=== PATIENT | female | born 1950 | race Caucasian/White ===

== ENCOUNTER 2016-10-22 07:18 | Outpatient (CLI) | payer MEDICARE, OTHER ==
[2016-10-22] MEDS ORDERED: SUCCINYLCHOLINE CHLORIDE 200 MG/10 ML VIAL ONE (07:52)
[2016-10-22] MEDS ORDERED: ROCURONIUM 100 MG/10 ML VIAL ONE (07:53)
[2016-10-22 08:22] LABS: CREATININE 1.2 mg/dL (0.6-1.0)
[2016-10-22] MEDS ORDERED: GADOBUTROL 10 ML VIAL IVP ONE (08:52)
[2016-10-22] MEDS ORDERED: MIDAZOLAM 2 MG/2 ML VIAL IVP ONE (09:05)
--- NOTE | 2016-10-22 09:05 | PDANEPAE ---
ANE History of Present Illness 66 yo F w Parkinson's Dx here for MRI ANE Past Medical History - Cardiovascular History Hx Hypertension: No Hx Arrhythmias: No Hx Chest Pain: No Hx Coronary Artery / Peripheral Vascular Disease: No Hx CHF / Valvular Disease: No Hx Palpitations: No - Pulmonary History Hx COPD: No Hx Asthma/Reactive Airway Disease: No Hx Recent Upper Respiratory Infection: No Hx Oxygen in Use at Home: No Hx Sleep Apnea: No - Neurologic History Hx Cerebrovascular Accident: No Hx Seizures: No Hx Dementia: No Neurologic History Comment: Parkinson's diagnosed 2017 - Endocrine History Hx Diabetes: No - Renal History Hx Renal Disorders: No - Liver History Hx Hepatic Disorders: No - Neurological & Psychiatric Hx Hx Neurological and Psychiatric Disorders: Yes Neurological / Psychiatric History Comment: Depression - Cancer History Hx Cancer: No - Congenital Disorder History Hx Congenital Disorders: No - GI History GERD: moderate Hx Gastrointestinal Disorders: No - Chronic Pain History Chronic Pain: No - Surgical History Prior Surgeries: AVCF 2013. left foot gangolin removal 1994. lasix eye surgery 2009 ANE Review of Systems - Exercise capacity Exercise capacity: >=4 METS METS (RN): 3 METS ANE Patient History - Allergies Allergies/Adverse Reactions: No Allergies [NKDA] Allergy (Verified 10/15/16 17:29) tree nut [Nuts] Allergy (Verified 10/15/16 17:29) - Home Medications Home medications: home medication list seen and reviewed Home Medications: ARIPiprazole [Abilify 10 mg (*)] 5 mg PO DAILY 10/15/16 [Last Taken Unknown] Citalopram Hydrobromide [Citalopram HBr] 40 mg PO DAILY 10/15/16 [Last Taken Unknown] Vit B12/Levomefolate/Vit B6/B2 [Cerefolin Tablet] 1 each PO DAILY 10/15/16 [ Last Taken Unknown] lamoTRIgine [LamICTAL 100 MG (*)] 200 mg PO DAILY 10/17/16 [Last Taken Unknown] - NPO status NPO Status: no food or drink >8 hours - Anes Hx Anes Hx: no prior problems - Smoking Hx Smoking Status: Former smoker - Alcohol Use Alcohol Use: Occasionally - Family Anes Hx Family Anes Hx: none Family Hx Anesthesia Complications: denies ANE Labs/Vital Signs - Labs Result Diagrams: 10/22/16 08:00 - Vital Signs Vital Signs: reviewed preoperatively; see RN documention for details Height: 162.56 cm Weight: 82.554 kg ANE Physical Exam - Airway Neck exam: FROM Mallampati Score: Class 2 Mouth exam: normal dental/mouth exam Mouth image: 1 - missing - Pulmonary Pulmonary: no respiratory distress, clear to auscultation - Cardiovascular Cardiovascular: regular rate and rhythym, no murmur, rub, or gallop - ASA Status ASA Status: III ANE Anesthesia Plan Anesthesia Plan: general endotracheal anesthesia
[2016-10-22] MEDS ORDERED: fentaNYL 100 MCG/2 ML INJ ONE (09:20)
[2016-10-22] MEDS ORDERED: PROPOFOL 200 MG/20 ML VIAL ONE ×2 (09:20→09:21)
[2016-10-22] MEDS ORDERED: LIDOCAINE 2% 100 MG/5 ML SYR ONE (09:21)
[2016-10-22] MEDS ORDERED: SUGAMMADEX SODIUM 200 MG/2 ML VIAL IVP ONE (10:45)
[2016-10-22] MEDS ORDERED: NALOXONE HCL 0.4 MG/ML INJ IVP PRN (11:09)
[2016-10-22] MEDS ORDERED: PROMETHAZINE HCL 25 MG/ML INJ IVP PRN (11:09)
[2016-10-22] MEDS ORDERED: ONDANSETRON 4 MG/2 ML VIAL IVP PRN (11:09)
[2016-10-22] MEDS ORDERED: ACETAMINOPHEN 500 MG TAB PO PRN (11:09)
--- NOTE | 2016-10-22 11:13 | POSTANESTH ---
Post Anesthetic Evaluation Cardiovascular Status: Normal, Stable, Similar to Pre-Op Cond Respiratory Status: Normal, Stable, Similar to Pre-op Cond. Level of Consciousness/Mental Status: Can Participate in Eval, Alert and Oriented Pain Control: Adequate, Prn Tx Ordered Nausea/Vomiting Control: Adequate, Prn Tx Ordered Complications Possibly Related to Anesthesia: None Noted
[2016-10-22] MEDS ORDERED: DEXAMETHASONE 10 MG/ML VIAL ONE (11:27)
[2016-10-22] MEDS ORDERED: PHENYLEPHRINE 10 MG/ML SDV ONE (11:27)
[2016-10-22] MEDS ORDERED: ONDANSETRON 4 MG/2 ML VIAL ONE (11:27)
[2016-10-22 12:04] VITALS: BP 125/70; RESP 16; O2SAT 97
== END 2016-10-22 12:30 | disposition home or self-care (01) ==
LOC: FIMAGING 07:18
PROVIDERS: ATTEND Neurological Surgery
PROC: B030Y0Z Magnetic Resonance Imaging (MRI) of Brain using Other Contrast, Unenhanced and Enhanced (ICD-10-PCS; principal; 2016-10-22 10:40)
DX: G20 Parkinson's disease (principal)
CPT/HCPCS: 70553; A9585; J0330; J1100; J2001; J2250; J2370; J2405; J2704; J3010

== ENCOUNTER 2016-10-29 05:30 | Inpatient (IN) | payer OTHER, MEDICARE ==
[2016-10-29] MEDS ORDERED: CEFUROXIME 1,500 MG in NS 50 ML IV ONE (06:22)
--- NOTE | 2016-10-29 06:38 | PDHPUP ---
History & Physical Update H&P update statement: This history and physical update is based on an assessment of the patient which was completed after admission or registration (within 24 hours), but prior to the surgery/procedure. H&P update: H&P reviewed & patient examined, no change in patient's condition since H&P completed
[2016-10-29] MEDS ORDERED: THROMBIN (BOVINE) 20,000 UNIT VIAL TP ONE ×2 (06:46→09:08)
[2016-10-29] MEDS ORDERED: LIDOCAINE 2% JELLY 20 ML (UROJECT) ONE (06:46)
[2016-10-29] MEDS ORDERED: BUPIVACAINE/EPI 0.25% 30 ML SDV ONE (06:47)
[2016-10-29] MEDS ORDERED: BACITRACIN 50,000 UNITS/10 ML SYR IRR ONE (06:47)
[2016-10-29] MEDS ORDERED: PROPOFOL 200 MG/20 ML VIAL ONE ×2 (06:49→07:52)
[2016-10-29] MEDS ORDERED: DEXMEDETOMIDINE HCL 200 MCG/2 ML VIAL IV ONE (06:51)
[2016-10-29] MEDS ORDERED: GENTAMICIN SULFATE 80 MG/2 ML VIAL ONE (09:07)
--- NOTE | 2016-10-29 09:12 | PDANEPAE ---
ANE History of Present Illness 66 y/o woman with parkinsons for DBS implant. ANE Past Medical History - Cardiovascular History Hx Hypertension: No Hx Arrhythmias: No Hx Chest Pain: No Hx Coronary Artery / Peripheral Vascular Disease: No Hx CHF / Valvular Disease: No Hx Palpitations: No - Pulmonary History Hx COPD: No Hx Asthma/Reactive Airway Disease: No Hx Recent Upper Respiratory Infection: No Hx Oxygen in Use at Home: No Hx Sleep Apnea: No Sleep Apnea Screening Result - Last Documented: Negative - Neurologic History Hx Cerebrovascular Accident: No Hx Seizures: No Hx Dementia: No Neurologic History Comment: MIGRAINES IN PAST - Endocrine History Hx Diabetes: No - Renal History Hx Renal Disorders: No - Liver History Hx Hepatic Disorders: No - Neurological & Psychiatric Hx Hx Neurological and Psychiatric Disorders: Yes Neurological / Psychiatric History Comment: ANXIETY & DEPRESSION - Cancer History Hx Cancer: No - Congenital Disorder History Hx Congenital Disorders: No - GI History Hx Gastrointestinal Disorders: Yes Gastrointestinal History Comment: GERD - Other Health History Other Health History: NEG - Chronic Pain History Chronic Pain: No - Surgical History Prior Surgeries: R KNEE REPAIR X2. LASIX. FUSION CERVICAL ANE Review of Systems - Exercise capacity METS (RN): 5 METS ANE Patient History - Allergies Allergies/Adverse Reactions: No Allergies [NKDA] Allergy (Verified 10/15/16 17:29) tree nut [Nuts] Allergy (Verified 10/15/16 17:29) - Home Medications Home Medications: ARIPiprazole [Abilify 10 mg (*)] 5 mg PO DAILY 10/15/16 [Last Taken 10/29/16 05: 00] Citalopram Hydrobromide [Citalopram HBr] 40 mg PO DAILY 10/15/16 [Last Taken 05/16 05:00] lamoTRIgine [LamICTAL 100 MG (*)] 200 mg PO DAILY 10/17/16 [Last Taken 10/29/16 05:00] Vit B12/Levomefolate/Vit B6/B2 [Cerefolin Tablet] 1 each PO 10/29/16 [Last Taken 10/29/16 05:00] - NPO status NPO Since - Liquids (Date): 10/28/16 NPO Since - Liquids (Time): 20:00 NPO Since - Solids (Date): 10/28/16 NPO Since - Solids (Time): 20:00 - Smoking Hx Smoking Status: Former smoker - Family Anes Hx Family Hx Anesthesia Complications: NEG ANE Labs/Vital Signs - Vital Signs Blood Pressure: 113/82 Heart Rate: 66 Respiratory Rate: 16 O2 Sat (%): 95 Height: 162.56 cm Weight: 82.554 kg ANE Physical Exam - Airway Mallampati Score: Class 2 Mouth exam: normal dental/mouth exam - Pulmonary Pulmonary: no respiratory distress - Cardiovascular Cardiovascular: regular rate and rhythym - ASA Status ASA Status: II ANE Anesthesia Plan Anesthesia Plan: MAC Lines/Monitors: arterial line
[2016-10-29] MEDS ORDERED: NALOXONE HCL 0.4 MG/ML INJ IVP PRN ×2 (09:14→09:16)
[2016-10-29] MEDS ORDERED: HYDROmorphONE/DILAUDID 1 MG/ML SYR IVP PRN (09:16)
[2016-10-29] MEDS ORDERED: LR 500 ML IV PRN (09:16)
[2016-10-29] MEDS ORDERED: fentaNYL 100 MCG/2 ML INJ IVP PRN (09:16)
[2016-10-29] MEDS ORDERED: ACETAMINOPHEN 500 MG TAB PO PRN (09:16)
[2016-10-29] MEDS ORDERED: DEXAMETHASONE 4 MG/ML VIAL IVP PRN (09:16)
[2016-10-29] MEDS ORDERED: HYDROCODONE/APAP 5/325 TAB PO PRN (09:16)
[2016-10-29] MEDS ORDERED: LACTULOSE 20 GM/30 ML UDCUP PO PRN (11:07)
[2016-10-29] MEDS ORDERED: MAGNESIUM HYDROXIDE 30 ML UDCUP PO PRN (11:07)
[2016-10-29] MEDS ORDERED: ACETAMINOPHEN 325 MG TAB PO PRN (11:07)
[2016-10-29] MEDS ORDERED: ONDANSETRON 4 MG/2 ML VIAL IVP PRN (11:07)
[2016-10-29] MEDS ORDERED: POLYETHYLENE GLYCOL 3350 17 GM PKT PO PRN (11:07)
[2016-10-29] MEDS ORDERED: BISACODYL 10 MG SUPP PR PRN (11:07)
--- NOTE | 2016-10-29 11:14 | POSTOPPROG ---
Post Op Note Date of Operation: 10/29/16 Surgeon: Ana Melendez Carpet Repairer: Ivanna Leyva PA-C Anesthesiologist: Dr. Bullard Anesthesia: IV Sedation Pre-op Diagnosis: Parkinson's Post-op Diagnosis: Parkinson's Procedure: Left STN DBS lead placment Inf/Abcess present in the surg proc area at time of surgery?: No EBL: Minimal Plan Plan: 66 yo female s/p left STN DBS lead placement - neuro checks - pain control - maintain SBP < 140 - postop head CT pending - PT/OT Exam Awake. alert Following commands Incision with dressing Strength full
[2016-10-29] MEDS ORDERED: NS W/ 20 KCl/L 1,000 ML IV SCH (11:15)
[2016-10-29] MEDS ORDERED: fentaNYL 100 MCG/2 ML INJ ONE (11:51)
[2016-10-29] MEDS: HYDROCODONE/APAP 10/325 TAB PO PRN ×2 (16:05→23:38)
[2016-10-29] MEDS: CEFUROXIME 1,500 MG in NS 50 ML IV SCH (16:56)
[2016-10-29] MEDS: SENNOSIDES/DOCUSATE SODIUM TAB PO SCH (19:58)
--- NOTE | 2016-10-29 20:39 | GPN ---
[f rep st] PROCEDURE NOTE DATE OF PROCEDURE: 10/29/2016 PREOPERATIVE DIAGNOSIS: Parkinson disease. POSTOPERATIVE DIAGNOSIS: Parkinson disease. PROCEDURE PERFORMED: Intraoperative functional subcortical mapping by microelectrode recording and stimulation. COMPLICATIONS: None. INDICATIONS FOR PROCEDURE: Determination of optimal electrode lead placement for deep brain stimula tion therapy for Parkinson disease to the STN. DESCRIPTION OF PROCEDURE: Following the incision, a bur hole was drilled on the left side. The arc was then arranged with the following coordinates of X 108, Y 94, Z 123, ring 72, arc 113. The bernadette rding microelectrode was then slowly advanced into the brain using an anterior and central tract. C ell bursts were noted above target in both tracts. In the anterior tract at 5 above target, there w as evidence of entering STN. There was change in stimulation with passive range of motion of the el bow at 4.7 above target. We exited STN at 0.5 below target and entered substantia nigra. There was no evidence of entering STN in the central tract. We were pleased with the recording of the anteri or tract and thus proceeded with macro stimulation. The patient had transient tingling up to 4.0 am plitude. We then proceeded with placing the lead and with test stimulation. We placed the bottom o f the lead at 0 target. At 0- the patient had transient tingling starting at 1.0 through 2.5 amplit ude with improved tremor at 2.0. At 1- patient had improved tremor and transient tingling up to 3.0 amplitude. At 2- patient had improved tremor starting at 1.5 amplitude and transient tingling at 3 .0 amplitude. At 3- patient had improved tremor, transient tingling up to 3.5 amplitude in her righ t hand. We elected to leave the lead at this location with the bottom of the lead at target at STN due to recordings we obtained as well as with test stimulation. The patient tolerated the surgery w ell without complication. /[id number]/MODL
[2016-10-30] MEDS: CEFUROXIME 1,500 MG in NS 50 ML IV SCH (01:27)
[2016-10-30 04:24] VITALS: PULSE 70
--- NOTE | 2016-10-30 07:31 | NEUSURGPN ---
Date of Surgery: 10/29/16 Post Op Day: 1 Assessment/Plan: Assessment: 66 yo female s/p left STN DBS lead placement POD #1 Plan: -continue with neuro checks -continue with current pain control-doing well with it -maintain SBP < 140 -postop head CT looks good -continue with PT/OT -PT/OT to see pt this am and if cleared then likely dc later today -warning signs given -call with any questions or concerns -pt understands and agrees Subjective: Awake and alert. Pt with some incisional pain, no neck/chest/abd or gu complaints. No f/c/n/v/d. Objective: Awake. alert Following commands Incision with dressing-CDI Strength full Neuro Check Frequency: per routine Urinary Catheter in Place: No - Physician Discussed Patient with DrDigna: Al Neurosurgery Physical Exam - Vitals, I&O, Labs I and O 10/29/16 10/30/16 10/31/16 05:59 05:59 05:59 Intake Total 1950 Output Total 20 Balance 1930 Weight 82.554 kg Intake: Oral (ml) 500 IV Intake (ml) 1400 IV Infused (ml) 50 Cefuroxime 1,500 mg In Ns 50 50 ml @ 200 mls/hr IV ONCALL ONE Rx#:[id number] Output: Estimated Blood Loss (ml) 20 Other: Intake Quantity Yes Sufficient Number of Voids Toilet 1 Vital Signs Temp Pulse Resp BP Pulse Ox 36.8 C 70 18 99/55 L 91 L 10/30/16 04:23 10/30/16 04:23 10/30/16 04:23 10/30/16 04:23 10/30/16 04:23 ICD10 Worksheet Patient Problems: Problems Problem Status Onset Parkinson disease Acute - ICD10 Problem Qualifiers (1) Parkinson disease
[2016-10-30 08:21] VITALS: BP 106/67; RESP 20; TEMP 98.2; O2SAT 92
[2016-10-30] MEDS: HYDROCODONE/APAP 10/325 TAB PO PRN (08:41)
[2016-10-30] MEDS: SENNOSIDES/DOCUSATE SODIUM TAB PO SCH (08:42)
[2016-10-30] MEDS ORDERED: CITALOPRAM 20 MG TAB PO SCH (09:00)
[2016-10-30] MEDS ORDERED: lamoTRIgine 100 MG TAB PO SCH (09:00)
[2016-10-30] MEDS ORDERED: NON-FORMULARY NEW DRUG (Citalopram Hydrobromide [Citalopram Hbr] 40 MG) PO SCH (09:00)
[2016-10-30] MEDS ORDERED: ARIPiprazole 10 MG TAB PO SCH (09:00)
[2016-11-01] MEDS ORDERED: ENOXAPARIN 40 MG/0.4 ML SYR SC SCH (09:00)
--- NOTE | 2016-11-04 09:55 | GDS ---
[f rep st] DISCHARGE SUMMARY ADMITTING DIAGNOSIS: Parkinson's disease. DISCHARGE DIAGNOSIS: Parkinson's disease. NAME OF PROCEDURE: Left subthalamic nucleus deep brain stimulator lead placement. HOSPITAL COURSE: The patient is a 66-year-old female, who presented to the hospital to undergo elec tive deep brain stimulation surgery. She underwent surgery by Dr. Ana Melendez on October 29 with paul cement of left STN DBS lead. The patient tolerated the surgery well without complication. Postop h ead CT was completed and was unremarkable for any acute intracranial hemorrhage. She was admitted t o the floor. She was seen by Physical and Occupational Therapy. On the following day, she was tole rating a diet, voiding without difficulty and medically stable, and thus she was deemed suitable for discharge. She was discharged to home on October 30. DISCHARGE MEDICATIONS: [place] 10/325, senna. Continue home medications of Abilify, citalopram, Lami ctal. DISCHARGE INSTRUCTIONS: The patient is to follow up with Dr. Ana Melendez in 2 weeks for suture rem oval and wound check. /[id number]/MODL
== END 2016-10-30 15:03 | disposition home or self-care (01) | DRG 27 ==
LOC: F3N 05:30
PROVIDERS: ADMIT Neurological Surgery; ATTEND Neurological Surgery
PROC: 00H03MZ Insertion of Neurostimulator Lead into Brain, Percutaneous Approach (ICD-10-PCS; principal; 2016-10-29 07:15)
DX: G20 Parkinson's disease (principal)
CPT/HCPCS: 97161-GP; 97165-GO; C1713; G8978-GP-CI; G8979-GP-CI; G8980-GP-CI; G8987-GO-CI; G8988-GO-CI; G8989-GO-CI; J0697; J2704; J3010

== ENCOUNTER 2016-11-26 05:43 | Inpatient (IN) | payer OTHER, MEDICARE ==
[2016-10-29 07:18] LABS: % IMMATURE GRANULYOCYTES 0.6 % (0.0-1.1); ABSOLUTE IMMATURE GRANULOCYTES 0.04 10^3/uL (0.00-0.10); ADD DIFF? NO; ADD MORPH? NO; ADD SCAN? NO; ATYPICAL LYMPHOCYTE FLAG 0 (0-99); FRAGMENT RBC FLAG 0 (0-99); HEMATOCRIT 42.9 % (38.0-47.0); HEMOGLOBIN 14.6 g/dL (12.6-16.3); LEFT SHIFT FLG 0 (0-99); LIPEMIA HEMOLYSIS FLAG 90 (0-99); MEAN CELL HEMOGLOBIN 34.3 pg (27.9-34.1); MEAN CELL VOLUME 100.7 fL (81.5-99.8); MEAN PLATELET VOLUME 9.1 fL (8.7-11.7); PLATELET CLUMPS FLAG 0 (0-99); PLATELET COUNT 193 10^3/uL (150-400); RED BLOOD CELL COUNT 4.26 10^6/uL (4.18-5.33); RED CELL DISTRIBUTION WIDTH 13.3 % (11.5-15.2)
[2016-10-29 07:35] LABS: ALANINE AMINOTRANSFERASE 31 IU/L (9-52); ALBUMIN 3.8 g/dL (3.5-5.0); ALKALINE PHOSPHATASE 69 IU/L (38-126); ANION GAP 12 mEq/L (8-16); ASPARTATE AMINOTRANSFERASE 22 IU/L (14-46); BILIRUBIN,TOTAL 0.4 mg/dL (0.1-1.4); CALCIUM 9.2 mg/dL (8.5-10.4); CARBON DIOXIDE 20 mEq/l (22-31); CHLORIDE 114 mEq/L (97-110); CREATININE 1.2 mg/dL (0.6-1.0); GLOMERULAR FILTRATION RATE 45; GLUCOSE 90 mg/dL (70-100); POTASSIUM 4.4 mEq/L (3.5-5.2); SODIUM 146 mEq/L (134-144); TOTAL PROTEIN 6.4 g/dL (6.3-8.2)
--- NOTE | 2016-10-29 11:46 | GHP ---
[f rep st] PREOP HISTORY AND PHYSICAL DATE OF ADMISSION: 11/26/2016 PREOPERATIVE DIAGNOSIS: Parkinson disease. POSTOPERATIVE DIAGNOSIS: Parkinson disease. PROCEDURE: 1. Left deep brain stimulator lead placement to the subthalamic nucleus. 2. Impedances. 3. Stealth stereotaxis. MEGHAN: ROSE Soto EBL: 10 mL. FLUIDS REPLACED: 1100 mL crystalloid. URINE OUTPUT: 700 mL. DRAINS: None. SPECIMENS: None. COMPLICATIONS: None. INDICATIONS: This is a 66-year-old female with tremor-predominant Parkinson's who was evaluated by a multidisciplinary team and found to be a good candidate for deep brain stimulation in staged fashi on to the STN left for right body to begin first. She was identified and consented. Sit es were marked. Brought to the operating room, anesthetized under local with MAC. Hair was clipped with the OR clippers. Head was cleansed with ChloraPrep, dipping the pins and iodine and anestheti zing with 0.25% Marcaine with epinephrine. We placed a Leksell frame and stereotactic configuration . Brought her downstairs, performed a Stealth stereotactic spin with a localizer box. Brought her back upstairs and merged this to the preoperative plan in the Stealth frame length software. Her AC PC distance was 23.71. The target was an X of -10.8, Y of -4.04, Z of -6.19. The entry point was a n X of -42.34, Y of 33.16, Z of 61.83. This corresponded to 24.9 degrees off midsagittal, 61.3 degr ees off midaxial. This corresponded to a Leksell frame coordinate X of 108, Y of 94, Z of 123, ring of 72 degrees, arc of 113.1 degrees. We then performed an O-arm stereotactic registration with the localizer registered. All the target and entry points were the same. The stereotactic frame coord inates were an X of 108, Y of 94, Z of 123, a ring of 72 degrees, and arc of 113 degrees. Both fram es registered with 0.6 mm predicted error and we elected to move forward with the O-arm registration with an anterior and a center tract. She was prepped and draped in the usual sterile fashion. Inc wanda was marked using the Leksell frame coordinates, which were all set and triple checked by all p roviders in the room. Incision site was marked. A half-hernandez incision was anesthetized with 0.25% M arcaine with epinephrine. Incision was made with a 10 blade. Hemostasis was obtained with bipolar cautery and Josiah clips. We used a periosteal elevator to elevate the periosteum. We then marked t he bone opening using the Leksell frame coordinates, created a spray pilot hole, and then drilled a 14 mm bur hole which was waxed. The dura was coagulated. The Navigus Stimloc device was locked into plac e using 5 mm Synthes screws and the clipping device was verified to clip and lock. We then opened t he dura sharply with an 11 blade, coagulated with bipolar, and then introduced the center and anteri or cannulas, placing Gelfoam and FloSeal. We then removed the internal stylet, placed the microelec trodes, and performed microelectrode recording. Please refer to Ivanna Leyva's microelectrode re cording dictation for all MEGHAN; however, the anterior tract was a positive tract with 5 mm of STN wit h good motor driving. macro stim and did not have any significant side effects. Elected to place the lead in the anterior tract with the bottom of the bottom contacted at target. We drov e to this position, removed both microelectrodes, placed the cannula in the center tract, measured a nd placed the lead, tested the lead at all 4 contacts, and had good tremor arrest with low-to-no madelyn e effects, elected to leave the lead here. Gently removed the center cannula. Removed the Gel-Foam and DuraSeal and copiously irrigated with gentamicin-infused saline. Placed the clipping mechanism , clipped and locked the mechanism, verified it was locked, brought the stylet out, brought the lead down and out, placed it into the groove, placed the cap over the Stimloc device, performed a stereo tactic spin and we had an excellent placement exactly where we expected at approximately 1.8 mm ante rior to the planned tract. We placed the boot over the lead extension complex, placed the lead exte nsion over, protecting each contact with the torque wrench, locked it into place. Brought the boot over the lead extension complex, tied into position with 2-0 silk ties at 2 positions, tunneled post erior with periosteal elevator. Anesthetized the posterior stab incision with 0.25% Marcaine. Perf ormed a stab incision with an 11 blade. Tunneled posterior to anterior. Brought the lead extension down and out. posterior and around the wound copiously irrigated with over a liter of g entamicin-infused saline. The lead flores had not migrated. We closed the galea with 2-0 Vicryl pop -offs. The skin was closed with 3-0 running nylon. The wound was dressed with Xeroform and Telfa s tapled down. The frame was removed. The patient's head was wrapped and she tolerated the procedure well. There were no complications. /[id number]/MODL
[2016-11-26] MEDS ORDERED: CEFUROXIME 1,500 MG in NS 50 ML IV ONE (06:00)
[2016-11-26] MEDS ORDERED: LR 1,000 ML IV ONE (06:15)
[2016-11-26] MEDS ORDERED: THROMBIN (BOVINE) 20,000 UNIT VIAL TP ONE (06:40)
[2016-11-26] MEDS ORDERED: BUPIVACAINE 0.25% 30 ML SDV ONE (06:40)
[2016-11-26] MEDS ORDERED: LIDOCAINE 2% JELLY 20 ML (UROJECT) ONE (06:41)
[2016-11-26] MEDS ORDERED: GENTAMICIN SULFATE 80 MG/2 ML VIAL ONE (06:42)
[2016-11-26] MEDS ORDERED: POVIDONE-IODINE 30 GM OINTTUBE TP ONE (06:42)
[2016-11-26] MEDS ORDERED: DEXMEDETOMIDINE HCL 200 MCG in NS 50 ML IV ONE ×2 (07:00→08:30)
[2016-11-26] MEDS ORDERED: PROPOFOL/EMULSION 500 MG/50 ML BOTTLE IV ONE (07:03)
[2016-11-26] MEDS ORDERED: LIDOCAINE 2% 5 ML SDV ONE (07:03)
--- NOTE | 2016-11-26 07:08 | PDANEPAE ---
ANE History of Present Illness Pt presents for DBS placement ANE Past Medical History - Cardiovascular History Hx Hypertension: No Hx Arrhythmias: No Hx Chest Pain: No Hx Coronary Artery / Peripheral Vascular Disease: No Hx CHF / Valvular Disease: No Hx Palpitations: No - Pulmonary History Hx COPD: No Hx Asthma/Reactive Airway Disease: No Hx Recent Upper Respiratory Infection: No Hx Oxygen in Use at Home: No Hx Sleep Apnea: No Sleep Apnea Screening Result - Last Documented: Negative - Neurologic History Hx Cerebrovascular Accident: No Hx Seizures: No Hx Dementia: No Neurologic History Comment: Parkinson's diagnosed 2017 - Endocrine History Hx Diabetes: No - Renal History Hx Renal Disorders: No - Liver History Hx Hepatic Disorders: No - Neurological & Psychiatric Hx Hx Neurological and Psychiatric Disorders: Yes Neurological / Psychiatric History Comment: Depression - Cancer History Hx Cancer: No - Congenital Disorder History Hx Congenital Disorders: No - GI History Hx Gastrointestinal Disorders: No Gastrointestinal History Comment: GERD - Other Health History Other Health History: NEG - Chronic Pain History Chronic Pain: No - Surgical History Prior Surgeries: AVCF 2013. left foot gangolin removal 1994. lasix eye surgery 2009 ANE Review of Systems - Exercise capacity METS (RN): 4 METS ANE Patient History - Allergies Allergies/Adverse Reactions: No Allergies [NKDA] Allergy (Verified 11/12/16 10:56) tree nut [Nuts] Allergy (Verified 11/12/16 10:56) - Home Medications Home medications: home medication list seen and reviewed Home Medications: ARIPiprazole [Abilify 10 mg (*)] 5 mg PO DAILY 10/15/16 [Last Taken 11/25/16 08: 00] Citalopram Hydrobromide [Citalopram HBr] 40 mg PO DAILY 10/15/16 [Last Taken 04:30] lamoTRIgine [LamICTAL 100 MG (*)] 200 mg PO DAILY 10/17/16 [Last Taken 11/26/16 04:30] - NPO status NPO Status: no food or drink >8 hours NPO Since - Liquids (Date): 11/26/16 NPO Since - Liquids (Time): 04:30 NPO Since - Solids (Date): 11/25/16 NPO Since - Solids (Time): 20:00 - Anes Hx Anes Hx: no prior problems - Smoking Hx Smoking Status: Former smoker - Family Anes Hx Family Hx Anesthesia Complications: denies ANE Labs/Vital Signs - Labs Result Diagrams: 10/29/16 06:55 10/29/16 06:55 - Vital Signs Blood Pressure: 118/67 Heart Rate: 74 Respiratory Rate: 18 O2 Sat (%): 96 Height: 162.56 cm Weight: 82.554 kg ANE Physical Exam - Airway Neck exam: FROM Mallampati Score: Class 2 - Pulmonary Pulmonary: no respiratory distress - Cardiovascular Cardiovascular: regular rate and rhythym - ASA Status ASA Status: II ANE Anesthesia Plan Anesthesia Plan: MAC
[2016-11-26] MEDS ORDERED: hydrALAZINE 20 MG/ML VIAL ONE (07:21)
[2016-11-26] MEDS ORDERED: ONDANSETRON 4 MG/2 ML VIAL ONE (07:21)
[2016-11-26] MEDS ORDERED: RANITIDINE 50 MG/2 ML VIAL ONE (07:21)
[2016-11-26] MEDS ORDERED: DEXAMETHASONE 4 MG/ML VIAL ONE (07:21)
[2016-11-26] MEDS ORDERED: LIDO/EPI 1% **for epidural** 30 ML SDV ONE (08:06)
[2016-11-26] MEDS ORDERED: PHENYLEPHRINE HCL 100 MCG/ML SYR ONE (08:16)
[2016-11-26] MEDS ORDERED: OXYCODONE/APAP 5/325 TAB PO PRN (10:45)
[2016-11-26] MEDS ORDERED: LR 500 ML IV PRN (10:45)
[2016-11-26] MEDS ORDERED: NALOXONE HCL 0.4 MG/ML INJ IVP PRN (10:45)
[2016-11-26] MEDS ORDERED: ONDANSETRON 4 MG/2 ML VIAL IVP PRN ×2 (10:45→11:29)
[2016-11-26] MEDS ORDERED: fentaNYL 100 MCG/2 ML INJ IVP PRN (10:45)
[2016-11-26] MEDS ORDERED: HYDROCODONE/APAP 5/325 TAB PO PRN (10:45)
[2016-11-26] MEDS ORDERED: ACETAMINOPHEN 500 MG TAB PO PRN (10:45)
[2016-11-26] MEDS ORDERED: BISACODYL 10 MG SUPP PR PRN (11:29)
[2016-11-26] MEDS ORDERED: POLYETHYLENE GLYCOL 3350 17 GM PKT PO PRN (11:29)
[2016-11-26] MEDS ORDERED: LACTULOSE 20 GM/30 ML UDCUP PO PRN (11:29)
[2016-11-26] MEDS ORDERED: ACETAMINOPHEN 325 MG TAB PO PRN (11:29)
[2016-11-26] MEDS ORDERED: MAGNESIUM HYDROXIDE 30 ML UDCUP PO PRN (11:29)
[2016-11-26] MEDS ORDERED: NS W/ 20 KCl/L 1,000 ML IV SCH (11:30)
[2016-11-26] MEDS ORDERED: hydrALAZINE 20 MG/ML VIAL IVP PRN (11:32)
--- NOTE | 2016-11-26 11:35 | POSTOPPROG ---
Post Op Note Date of Operation: 11/26/16 Surgeon: Ana Melendez Intelligence Chief: Ivanna Leyva PA-C Anesthesiologist: Dr. Strickland Anesthesia: IV Sedation Pre-op Diagnosis: Parkinson's Post-op Diagnosis: Parkinson's Procedure: Right STN DBS lead placement Inf/Abcess present in the surg proc area at time of surgery?: No Depth: Deep Incisional (Fascial) EBL: Minimal Plan Plan: 66 yo female s/p right STN DBS lead placement for PD Awake. Alert. PERRL Speech fluent Following commands - neuro checks - postop head CT pending - maintain SBP < 140 - PT/OT - dispo: home tomorrow
--- NOTE | 2016-11-26 11:57 | GOP ---
[f rep st] OPERATIVE REPORT DATE OF OPERATION: 11/26/2016 SURGEON: Ana Melendez DO NEUROSURGEON: Ana Melendez DO. HEATER HELPER FORGE: None. PREOPERATIVE DIAGNOSIS: Parkinson disease. POSTOPERATIVE DIAGNOSIS: Parkinson disease. PROCEDURE PERFORMED: 1. Right-sided deep brain stimulator lead placement with Medtronic 3389 lead to STN nucleus. 2. Stealth stereotaxis. FINDINGS: SPECIMENS: None. ESTIMATED BLOOD LOSS: 15 mL. INDICATIONS: This is a 66-year-old female who had an indwelling left-sided STN deep brain stimulato r lead placed approximately 1 month ago who returns for the right-sided lead prior to generator plac ement to the STN. DESCRIPTION OF PROCEDURE: She was identified, consented. Sites were marked. Brought to the operat ing room, anesthetized under local with MAC. Hair was clipped with the OR clippers. Pin sites were marked. She was cleansed with chlorhexidine and pin sites were anesthetized with 0.25% Marcaine an d 1% lidocaine with epinephrine in a 50:50 mixture. Using Betadine ointment on the pin sites, we pl aced the [place] frame stereotactically and then performed a stealth O arm spin with a localizer box . This was to the preoperative plan and the stealth frame length software mirroring her pre vious lead. Her ACPC distance was 23.89. Her target was an X of 10.3, a Y of 4.62, a Z of 5.89. T he entry point was an X of 42.27, a Y of 27.89, a Z of 68.09, corresponding to 23.4 degrees off mids agittal and 66.2 degrees off midaxial. This created [place] frame coordinates of an X of 87.5, a y of 94, a Z of 119.5, a ring of 73 degrees, and an arc of 70.8 degrees. Her [place] frame coordinate s were all set and triple checked by all providers in the room. She was prepped and draped in the u sual sterile fashion. The sterile portion of the [place] frame was set and triple checked by all pr oviders in the room. We marked the skin incision opening using [place] frame coordinates and a half -hernandez incision was anesthetized with 0.5% Marcaine with epinephrine, and a half-hernandez incision was ma de with a 10 blade. Hemostasis was obtained with bipolar and Josiah clips. The periosteal elevator was used to elevate the periosteum. Then the bone and the bone opening was marked using the cannula and the [place] frame coordinates. Then a jet pilot hole was drilled. Then a 14 mm fabian hole was dril led. Edges were waxed. We verified it was in the appropriate position. We placed the stem lock de vice, locking it the place with 5 mm screws. Placed the locking device, verified it, clipped and lo cked. Placed that on the back table. Opened the dura with an 11 blade, and coagulated the dura. G ently inserted the cannula and reducing stylet, sealed the space with Gelfoam and DuraSeal. Removed reducing stylet, placed a microelectrode. Performed microelectrode recordings, got excellent STN w ith macro stem, low to no side effects. The patient had no further tremor, and she is tremor predom inant. To test it, we had to go off side effect, elected to leave the lead here with the bottom of the bottom contact approximately 0.5 mm above the target where we got out of STN. We then tested ea ch contact for side effects as she had resolution of her tremor, and had a very programmable lead. We elected to leave the lead here. An x-ray was taken with the bomb sites and then the cannula was retracted. The clipping mechanism was clipped, locked, and verified the lock. The lead was marked. The stylet was removed. The lead was brought down, out, and placed into the lead. The cap was pl aced. Another x-ray was performed. A stereotactic spin with the O arm was performed. Then we merg ed it, and we had excellent lead placement with near perfect accuracy compared to our plan. We then put the boot over the lead extension complex, placed the lead extension complex over the lead prote cting each contact, locked into place with the torque wrench. Brought the boot over the lead extens ion complex, tied it into position with 2-0 silk ties at 2 positions, tunneled posterior with perios teal elevator. Anesthetized the stab incision with 0.5% Marcaine with epinephrine. Posterior tunne led posterior to anterior and brought the lead extension down and out of the skin, cutting into the skin. Coiled the lead around the incision to the final x-ray with the bomb sites. The lead had not migrated. Copiously irrigated with gentamicin infused saline. Closed the galea with 2-0 Vicryl po p-offs. The skin was closed with 3-0 running nylon. The wound was dressed with Xeroform and Telfa, stapled down. The patient was removed from the [place] fish header. Head was wrapped with gauze. Patient tolerated procedure well. No complications. MEGHAN: ROSE Soto. Please refer to Ivanna Leyva's dictation for all MEGHAN. FLUID: 1300 mL crystalloid. URINE OUTPUT: 800 mL. DRAINS: None. COMPLICATIONS: None. /[id number]/MODL
--- NOTE | 2016-11-26 12:02 | POSTANESTH ---
Post Anesthetic Evaluation Cardiovascular Status: Similar to Pre-Op Cond Respiratory Status: Similar to Pre-op Cond. Level of Consciousness/Mental Status: Alert and Oriented Pain Control: Adequate, Prn Tx Ordered Nausea/Vomiting Control: Adequate, Prn Tx Ordered (Uncomplicated recovery)
--- NOTE | 2016-11-26 12:57 | GPN ---
[f rep st] PROCEDURE NOTE DATE OF PROCEDURE: 11/26/2016 PREOPERATIVE DIAGNOSIS: Parkinson disease. POSTOPERATIVE DIAGNOSIS: Parkinson disease. PROCEDURE PERFORMED: Intraoperative functional subcortical mapping by microelectrode recording and stimulation. COMPLICATIONS: None. INDICATIONS FOR PROCEDURE: Determination of optimal electrode lead placement for deep brain stimulation therapy for Parkinson disease to the STN. DESCRIPTION OF PROCEDURE: Following the incision, a bur hole was drilled on the right side. The arc was then arranged with the following coordinates X 87.5 , Y 94.0, Z 119.5, ring 73.0, arc 70.8. The recording microelectrode was then slowly advanced into the brain using a central tract. Cell bursts were noted above targets at 10 above. There was evidence of entering STN at 4.5-5 above target. There was change in stimulation with passive range of motion with elbow extension at 3.6 above target. It became quieter and we exited STN around 0.5 above target. There was evidence of entering SNR at 0.1 below target. Due to this recording, we then proceeded with macro-stimulation. The patient had transient tingling in her left hand at 2.0 and sustained at 3.0. We then placed the lead with the bottom of the lead at 0.5 above target. At 0-, she had transient left hand tingling that started at 1.5 and was aimed at 2.0. At 1 -, she had left hand tingling starting at 2.0, sustained at 2.5. At 2-, the patient had left hand tingling at 3.0; however transient. No side effects up to 4.0. At 3-, the patient had transient tingling at 3.0 and 3.5. No sustained tingling up to 3.5. The patient had no tremor for us to therapeutically test. We elected to leave the lead at this location with the bottom of the lead at 0.5 above target, due to the recordings we obtained, as well as the test stimulation. The patient tolerated the surgery well without complication. /[id number]/MODL MTDD
[2016-11-26] MEDS: HYDROCODONE/APAP 10/325 TAB PO PRN ×2 (14:20→21:17)
[2016-11-26] MEDS: CEFUROXIME 1,500 MG in NS 50 ML IV SCH (17:49)
[2016-11-27] MEDS: SENNOSIDES/DOCUSATE SODIUM TAB PO SCH ×2 (01:06→08:36)
[2016-11-27] MEDS: CEFUROXIME 1,500 MG in NS 50 ML IV SCH (01:10)
[2016-11-27] MEDS: HYDROCODONE/APAP 10/325 TAB PO PRN ×3 (02:23→14:13)
--- NOTE | 2016-11-27 07:37 | NEUSURGPN ---
Assessment/Plan: A: 66 yo female s/p right STN DBS lead placement for PD POD#1 Plan: - neuro checks - postop head CT reviewed - maintain SBP < 140 - PT/OT - dispo: home today - D/w Dr Melendez - Call NS with any issues Subjective: Pt resting in bed, had difficulty with pain control overnight but doing better this AM Objective: AAOx3 NAD VSS MAEx4 Incision cdi dressing removed and replaced +LT Urinary Catheter in Place: No - Physician Discussed Patient with : Al Neurosurgery Physical Exam - Vitals, I&O, Labs I and O 11/26/16 11/27/16 11/28/16 05:59 05:59 05:59 Intake Total 2845 Output Total 815 Balance 2030 Weight 82.554 kg Intake: Oral (ml) 645 IV Intake (ml) 2000 IV Infused (ml) 200 Cefuroxime 1,500 mg In Ns 100 50 ml @ 200 mls/hr IV Q8H HERLINDA Rx#:[id number] NS W/ 20 KCl/L 1,000 ml @ 100 75 mls/hr IV CONT HERLINDA Rx #:[id number] Output: Urine (ml) 800 Catheter 800 Estimated Blood Loss (ml) 15 Other: Intake Quantity Yes Sufficient Number of Voids Toilet 2 Vital Signs Temp Pulse Resp BP Pulse Ox 37.0 C 65 16 90/52 L 95 11/27/16 04:42 11/27/16 04:42 11/27/16 04:42 11/27/16 04:42 11/27/16 04:42 Laboratory Results 10/29/16 06:55 10/29/16 06:55 ICD10 Worksheet Patient Problems: Problems Problem Status Onset Parkinson disease Acute
[2016-11-27 08:19] VITALS: BP 98/56; RESP 12
[2016-11-27] MEDS ORDERED: ARIPiprazole 10 MG TAB PO SCH (09:00)
[2016-11-27] MEDS ORDERED: CITALOPRAM 20 MG TAB PO SCH (09:00)
[2016-11-27] MEDS ORDERED: NON-FORMULARY NEW DRUG (Citalopram Hydrobromide [Citalopram Hbr] 40 MG) PO SCH (09:00)
[2016-11-27] MEDS ORDERED: lamoTRIgine 100 MG TAB PO SCH (09:00)
[2016-11-27 11:11] VITALS: PULSE 57; TEMP 97.5; O2SAT 95
--- NOTE | 2016-11-27 15:41 | ASDISCHSUM ---
Discharge Information Plan Status:Home with No Needs Medically Cleared to Leave: Discharge Date:11/27/2016 02:55 PM CM D/C Disposition: ADT D/C Disposition:Home, Routine, Self-Care Projected Discharge Date:11/27/2016 02:55 PM Transportation at D/C: Discharge Delay Reason: Follow-Up Date:11/27/2016 02:55 PM Discharge Slot: Final Diagnosis: Placement Information Patient Contact Information Contact Name:NIKKI Relationship:Friend Address: Work Phone: City:[facility] Phone: State/[place] Code[place] Email: Financial Information Financial Class: Primary Plan Desc:MEDICARE INPATIENT Primary Plan Number:[id number] Secondary Plan Desc:[employer]/MDR SUPPLEMENT Secondary Plan Number:[id number] Assessment Information [facility] Initial CM Assessment Discharge Plan Comments Coordination Status Comments Notes: PT rec outpatient, OT rec home. Pt will d/c w friends/family no CM d/c needs identified. Date Signed: 11/27/2016 03:40 PM Electronically Signed By:Nahed Lee Intervention Information
[2016-11-29] MEDS ORDERED: ENOXAPARIN 40 MG/0.4 ML SYR SC SCH (09:00)
== END 2016-11-27 14:55 | disposition home or self-care (01) | DRG 27 ==
LOC: F3N 05:43
PROVIDERS: ADMIT Neurological Surgery; ATTEND Neurological Surgery
DX: G20 Parkinson's disease (principal)
CPT/HCPCS: 97162-GP; 97165-GO; C1713; G8978-GP-CI; G8979-GP-CI; G8980-GP-CI; G8987-GO-CI; G8988-GO-CI; G8989-GO-CI; J0171; J0360; J0697; J1100; J2370; J2405; J2704; J2780

== ENCOUNTER 2016-12-31 05:31 | Day surgery (SDC) | payer OTHER, MEDICARE ==
[2016-12-31] MEDS ORDERED: LR 1,000 ML IV ONE (05:57)
[2016-12-31] MEDS ORDERED: LIDOCAINE 1% 2 ML INJ ID PRN (05:57)
[2016-12-31] MEDS ORDERED: CEFUROXIME 1,500 MG in NS 50 ML IV ONE (06:00)
[2016-12-31] MEDS ORDERED: BUPIVACAINE 0.25% 30 ML SDV ONE (06:40)
[2016-12-31] MEDS ORDERED: GENTAMICIN SULFATE 80 MG/2 ML VIAL ONE (06:41)
[2016-12-31 06:56] LABS: APTT 27.8 SEC (23.0-38.0)
[2016-12-31 07:01] LABS: ANION GAP 8 mEq/L (8-16); CALCIUM 9.4 mg/dL (8.5-10.4); CARBON DIOXIDE 24 mEq/l (22-31); CHLORIDE 109 mEq/L (97-110); CREATININE 1.2 mg/dL (0.6-1.0); GLOMERULAR FILTRATION RATE 45; GLUCOSE 86 mg/dL (70-100); POTASSIUM 4.9 mEq/L (3.5-5.2); PROTIME(PATIENT) 55.4 SEC (12.0-15.0); SODIUM 141 mEq/L (134-144)
[2016-12-31 07:05] LABS: INR 6.06 (0.83-1.16)
[2016-12-31 07:40] LABS: APTT 28.1 SEC (23.0-38.0); INR 1.08 (0.83-1.16); PROTIME(PATIENT) 13.9 SEC (12.0-15.0)
[2016-12-31] MEDS ORDERED: MIDAZOLAM 2 MG/2 ML VIAL ONE (07:48)
[2016-12-31] MEDS ORDERED: fentaNYL 100 MCG/2 ML INJ ONE ×3 (07:52→10:18)
[2016-12-31] MEDS ORDERED: PROPOFOL/EMULSION 500 MG/50 ML BOTTLE IV ONE (07:53)
[2016-12-31] MEDS ORDERED: LIDOCAINE 2% 5 ML SDV ONE (08:01)
[2016-12-31] MEDS ORDERED: ROCURONIUM 50 MG/5 ML VIAL ONE (08:55)
[2016-12-31] MEDS ORDERED: DEXAMETHASONE 4 MG/ML VIAL ONE (08:55)
[2016-12-31] MEDS ORDERED: epHEDrine SULFATE 10 MG/ML SYR ONE (08:55)
[2016-12-31] MEDS ORDERED: ONDANSETRON 4 MG/2 ML VIAL ONE (08:55)
[2016-12-31] MEDS ORDERED: MIDAZOLAM 2 MG/2 ML VIAL IVP ONE (08:57)
--- NOTE | 2016-12-31 08:58 | PDANEPAE ---
ANE Past Medical History - Cardiovascular History Hx Hypertension: No Hx Arrhythmias: No Hx Chest Pain: No Hx Coronary Artery / Peripheral Vascular Disease: No Hx CHF / Valvular Disease: No Hx Palpitations: No - Pulmonary History Hx COPD: No Hx Asthma/Reactive Airway Disease: No Hx Recent Upper Respiratory Infection: No Hx Oxygen in Use at Home: No Hx Sleep Apnea: No Sleep Apnea Screening Result - Last Documented: Negative - Neurologic History Hx Cerebrovascular Accident: No Hx Seizures: No Hx Dementia: No Neurologic History Comment: Parkinson's diagnosed 2016. TREMOR - Endocrine History Hx Diabetes: No Hypothyroid: No Hyperthyroid: No Obesity: moderate - Renal History Hx Renal Disorders: No - Liver History Hx Hepatic Disorders: No - Neurological & Psychiatric Hx Hx Neurological and Psychiatric Disorders: Yes Neurological / Psychiatric History Comment: Depression - Cancer History Hx Cancer: No - Congenital Disorder History Hx Congenital Disorders: No - GI History GERD: moderate Hx Gastrointestinal Disorders: Yes Gastrointestinal History Comment: REFLUX - Other Health History Other Health History: WEARS GLASSES. WEARS HEARING AIDES BILATERALLY - Chronic Pain History Chronic Pain: No - Surgical History Prior Surgeries: 11/26/16 STIMULATOR PLACED WITH REID. 10/29/16 LEFT CRANI WITH LEAD PLACEMENT WITH REID. ACDF 2013. left foot gangolin removal 1994. lasix eye surgery 2009 ANE Review of Systems Review of Systems: - Exercise capacity METS (RN): 4 METS ANE Patient History - Allergies Allergies/Adverse Reactions: No Allergies [NKDA] Allergy (Verified 12/03/16 10:22) tree nut [Nuts] Allergy (Verified 12/03/16 10:22) - Home Medications Home Medications: ARIPiprazole [Abilify 10 mg (*)] 5 mg PO DAILY 10/15/16 [Last Taken 12/31/16 04: 45] Citalopram Hydrobromide [Citalopram HBr] 40 mg PO DAILY 10/15/16 [Last Taken 07/14 04:45] lamoTRIgine [LamICTAL 100 MG (*)] 200 mg PO DAILY 10/17/16 [Last Taken 12/31/16 04:45] - NPO status NPO Since - Liquids (Date): 12/30/16 NPO Since - Liquids (Time): 20:00 NPO Since - Solids (Date): 12/30/16 NPO Since - Solids (Time): 20:00 - Smoking Hx Smoking Status: Former smoker - Family Anes Hx Family Hx Anesthesia Complications: denies ANE Labs/Vital Signs - Labs Result Diagrams: 12/31/16 06:35 - Vital Signs Blood Pressure: 101/68 Heart Rate: 72 Respiratory Rate: 14 O2 Sat (%): 95 Height: 162.56 cm Weight: 82.554 kg ANE Physical Exam - Airway Neck exam: FROM Mallampati Score: Class 2 Mouth exam: normal dental/mouth exam - Pulmonary Pulmonary: no respiratory distress - Cardiovascular Cardiovascular: regular rate and rhythym - ASA Status ASA Status: II ANE Anesthesia Plan Anesthesia Plan: general endotracheal anesthesia Urgent/Emergent Case: Robin nath completed preop but documented later for safe timely pt care
[2016-12-31] MEDS ORDERED: ONDANSETRON 4 MG/2 ML VIAL IVP PRN (09:37)
[2016-12-31] MEDS ORDERED: NALOXONE HCL 0.4 MG/ML INJ IVP PRN (09:37)
--- NOTE | 2016-12-31 09:51 | POSTANESTH ---
Post Anesthetic Evaluation Cardiovascular Status: Normal, Stable Respiratory Status: Normal, Stable Level of Consciousness/Mental Status: Can Participate in Eval Pain Control: Adequate, Prn Tx Ordered Nausea/Vomiting Control: Adequate, Prn Tx Ordered Complications Possibly Related to Anesthesia: None Noted
--- NOTE | 2016-12-31 09:54 | POSTOPPROG ---
Post Op Note Date of Operation: 12/31/16 Surgeon: Ana Melendez Gradall Operator: Ivanna Leyva PA-C Anesthesia: GET(General Endotracheal) Pre-op Diagnosis: Parkinson's Post-op Diagnosis: Parkinson's Procedure: Bilaterl DBS generator implant Inf/Abcess present in the surg proc area at time of surgery?: No Depth: Deep Incisional (Fascial) EBL: Minimal Plan Plan: 66 yo female s/p bilateral DBS generator implant - neuro checks - pain control - advance diet as tolerated - dc home today Exam Awake. Alert. Following commands Moving all extremities Incisions c/d/i
[2016-12-31 10:16] VITALS: PULSE 92
[2016-12-31] MEDS: fentaNYL 100 MCG/2 ML INJ IVP PRN ×3 (10:20→10:42)
[2016-12-31] MEDS ORDERED: HYDROCODONE/APAP 5/325 TAB ONE ×2 (10:39→11:24)
[2016-12-31] MEDS: HYDROCODONE/APAP 5/325 TAB PO PRN ×2 (10:40→11:27)
--- NOTE | 2016-12-31 10:59 | GOP ---
[f rep st] OPERATIVE REPORT DATE OF OPERATION: 12/31/2016 SURGEON: Ana Melendez DO NEUROSURGEON: Ana Melendez DO AIRLINE COUNTER AGENT: ROSE Soto PREOPERATIVE DIAGNOSIS: Parkinson disease. POSTOPERATIVE DIAGNOSIS: Parkinson disease. PROCEDURE PERFORMED: 1. Placement of bilateral deep brain stimulator generators with Medtronic Activa SC. 2. Impedances x2. FINDINGS: SPECIMENS: None. ESTIMATED BLOOD LOSS: 30 mL. INDICATIONS: This is a 66-year-old female with bilateral deep brain stimulator leads to the STN nucl eus, indwelling, who comes today for her generator placement. DESCRIPTION OF PROCEDURE: She was identified, consented. Sites were marked. Brought to the operati ng room. Anesthetized under general endotracheal anesthesia. Hair was clipped with the OR clippers. Incision sites were marked. She was prepped and draped in the usual sterile fashion on the left si de. The incision at the chest wall was anesthetized with 0.5% Marcaine with epinephrine. Incision w as made with a 10 blade just lateral to the lead extension complex, and using DeBakey's and Metzenbau m scissors, dissected this out. We then made an incision on the chest wall with a 10 blade and creat ed a subcutaneous pocket using blunt dissection in a subfascial plane. Meticulous hemostasis was obt ained. We then tunneled, doing a single pass over the clavicle with a [employer] tunneler, bringing e xtension up and out. We cut the stay sutures on the lead extension complex and retracted the boot, p rotecting each contact. Used the torque wrench to remove the extension and the boot. Replaced the b oot. Gently dried the lead. Placed it into the extension. Locked it down with a torque wrench, pro tecting each contact. Brought the boot over the lead extension complex. Tied it into position with 2-0 silk ties at 2 positions. Brought it flat against the skull. Placed the extension into the gene rator. Locked it into position with the torque wrench. Coiled the wires posterior to the generator. Placed it into the pocket. Checked impedances. All impedances were good. Sutured the generator t o the anterior chest wall with 2-0 silk stitch at 2 positions. Copiously irrigated each incision wit h over 1 L each of gentamicin-infused saline. Closed the scalp incision galea with 2-0 Vicryl pop-of fs, and the skin with a 3-0 running nylon. The fascia at the chest wall was closed with 2-0 Vicryl p op-offs, subcutaneous layer with 3-0 Vicryl pop-offs. The skin was closed with 4-0 running Monocryl and Dermabond. Head was dressed with gauze and Xeroform and tape, and she was then draped. Her head was turned, repositioned, and the incision sites were marked on the other side. The procedure was repeated, with an incision anesthetized at the chest wall with 0.5% Marcaine with e pinephrine. Incision made just lateral to the lead extension complex with a 10 blade. Dissecting ou t with Metzenbaum scissors the lead extension complex, we then made an incision at the chest wall wit h a 10 blade and created a subcutaneous subfascial pocket for the generator using blunt dissection. Meticulous hemostasis was obtained with bipolar cautery. We then tunneled a single pass over the cla vicle, bringing the extension up and out. Cut the extension complex sutures with a 15 blade. Retrac mami the boot, protecting each contact. Used the torque wrench to remove the extension and the boot. Discarded them. Placed a new boot. Gently dried the lead. Placed it into the extension, protectin g each contact. Locked into place with the torque wrench. Brought the boot over the lead extension complex. Tied it in position with 2-0 silk ties at 2 positions. Brought it flat against the skull. Placed the extension into the generator. Locked it into place with the torque wrench. Coiled the w ires posterior to the torque wrench. Checked impedances. All impedances were good. Sutured the gen erator to the anterior chest wall with 2-0 silk stitch at 2 positions in the appropriate configuratio n. Copiously irrigated each incision with over 1 L of gentamicin-infused saline. The head incision galea was closed with 2-0 Vicryl pop-offs. The skin was closed with 3-0 running nylon. At the chest , the fascia was closed with 2-0 Vicryl pop-offs, subcutaneous layer with 3-0 Vicryl pop-offs. The s kin was closed with a 4-0 running Monocryl and Dermabond. Both incisions were redressed with Xerofor m gauze and tape. Patient tolerated procedure well. All impedances were good. There were no complications. FLUIDS: 1 L crystalloid. URINE OUTPUT: None. DRAINS: None. COMPLICATIONS: None. /[id number]/MODL
[2016-12-31 11:06] VITALS: BP 121/56; TEMP 97.5
[2016-12-31 11:17] VITALS: RESP 18; O2SAT 94
== END 2016-12-31 11:45 | disposition home or self-care (01) ==
LOC: FSGY 05:31
PROVIDERS: ATTEND Neurological Surgery
PROC: 0JH60DZ Insertion of Multiple Array Stimulator Generator into Chest Subcutaneous Tissue and Fascia, Open Approach (ICD-10-PCS; principal; 2016-12-31 07:15)
DX: Z45.42 Encounter for adjustment and management of neurostimulator (principal); G20 Parkinson's disease
CPT/HCPCS: C1767; C1787; C1883; J0171; J0697; J1100; J2250; J2405; J2704; J3010